=== PATIENT | female | born 1980 | race Caucasian/White ===

== ENCOUNTER 2025-01-09 08:36 | Inpatient (IN) | payer BC, SELFPAY ==
[2025-01-09 08:47] VITALS: BP 117/62; BMI 37.9
[2025-01-09 09:06] LABS: % Basophils 0.2 % (0-2); % Eosinophils 2.6 % (0-6); % Immature Granulocytes 0.6 % (0-0.5); % Lymphocytes 21.8 % (20.5-51.1); % Monocytes 6.9 % (1.7-9.3); % Neutrophils 67.9 % (42.2-75.2); Absolute Eosinophils 0.2 10^3/uL (0-0.7); Absolute Immature Granulocytes 0.1 10^3/uL (0-0.05); Absolute Lymphocytes 1.9 10^3/uL (1.2-3.4); Absolute Monocytes 0.6 10^3/uL (0.1-0.6); Hematocrit 31.2 % (37.0-47.0); Hemoglobin 10.5 g/dL (12.0-16.0); Mean Corp Hgb Conc. 33.7 g/dL (33.0-37.0); Mean Corpuscular Hgb 28.8 pg (27.0-31.0); Mean Corpuscular Volume 85.7 fL (81.0-99.0); Mean Platelet Volume 10.9 fL (7.4-10.4); Nucleated Red Blood Cells % 0 %; Platelet Count 205 10^3/uL (130-400); Red Blood Cell Count 3.64 10^6/uL (4.20-5.40); Red Cell Dist. Width 15.9 % (11.5-14.5); White Blood Cell Count 8.8 10^3/uL (4.8-10.8)
[2025-01-09] MEDS: TYLENOL 1000 MG PO (09:15)
[2025-01-09] MEDS: BICITRA 30 ML PO (09:15)
[2025-01-09] MEDS: CLEOCIN 50 IV (09:26)
[2025-01-09 09:33] LABS: ALT (SGPT) 21 U/L (0-35); AST (SGOT) 30 U/L (14-36); Alkaline Phosphatase 133 U/L (38-126); Blood Urea Nitrogen 7 mg/dl (7-17); Calcium 8.7 mg/dl (8.4-10.2); Carbon Dioxide 17 mmol/L (22-30); Chloride 109 mmol/L (98-107); Estimated Creatinine Clearance > 125 ml/min; Glucose 86 mg/dl (70-99); Potassium 3.9 mmol/L (3.5-5.1); Sodium 134 mmol/L (135-145); Total Bilirubin 0.6 mg/dl (0.2-1.3); Total Protein 5.8 g/dl (6.3-8.2); eGFR > 60.00
[2025-01-09] MEDS: GENTAMICIN 60 MG IV (10:20)
[2025-01-09] MEDS: PITOCIN 30 UNITS/NSS 500 ML IV (11:23)
--- NOTE | 2025-01-09 11:34 | CON.NEO ---
Consultation
-
Date/Time Consultation Requested: 01/09/2025 at 0900
Date/Time Consultation Performed: 01/09/2025 at 0900
Requesting Provider: Dr. Chun
Performing Provider: Dr. Curiel
Reason for Consultation: Late infant due to vaginal bleeding with placenta previa
Consultation - Neonatology
Maternal Labs
Blood Type: O Positive
Antibody Screen: Negative
RPR: Nonreactive
Rubella: Immune
Hep B S Ag: Negative
Hep C: Negative
HIV: Nonreactive
Group B Strep: Unknown
Chlamydia/GC: Negative
Consult
Points discussed at consult:
- Management at delivery and presence of NICU team that included the possibility of CPAP/intubation/surfactant discussed and possible need for NICU admission if any respiratory distress is noted.
- Nutrition: Risk of hypoglycemia due to LPI and IDM status. Mom plans to breastfeed, signed donor BM acknowledgement.
- Jaundice possibility and need for phototherapy discussed, will monitor either in the ICN or nursery.
- Skin to skin either in the OR if mom and baby stable or in the ICN if baby were to require admission.
Mom and Dad were given the opportunity to ask questions throughout and open invitation to call if any questions come as they absorb all the information given so far.
Face to Face Time
Total [facility] Time (in Minutes): 30
Manager Shift
[2025-01-09 12:12] LABS: Cord VBG HCO3 - POC 20 mmol/L; Cord VBG pCO2 - POC 43 mmHg; Cord VBG pH - POC 7.27; Cord VBG pO2 - POC < 18 mmHg
[2025-01-09] MEDS: TORADOL 15 MG IV ×2 (13:00→18:23)
[2025-01-09] MEDS: LR 1000 IV (13:01)
[2025-01-10] MEDS: TORADOL 15 MG IV ×2 (00:38→06:30)
--- NOTE | 2025-01-10 04:23 | DOWNTIME ---
There was a [email or web address] Client Head Packager Downtime on 01/10/2025 from 0100 to 01/11/2024 at 0420 . Downtime documentation of patient's care, including medication administrations, has been reconciled in the electronic record per guidelines. Refer to the
patient's paper chart under the miscellaneous tab to see printed paper medication records and downtime forms.
[2025-01-10 05:13] LABS: Hematocrit 26.2 % (37.0-47.0); Hemoglobin 8.8 g/dL (12.0-16.0); Mean Corp Hgb Conc. 33.6 g/dL (33.0-37.0); Mean Corpuscular Hgb 28.7 pg (27.0-31.0); Mean Corpuscular Volume 85.3 fL (81.0-99.0); Mean Platelet Volume 11.5 fL (7.4-10.4); Platelet Count 189 10^3/uL (130-400); Red Blood Cell Count 3.07 10^6/uL (4.20-5.40); Red Cell Dist. Width 15.9 % (11.5-14.5)
[2025-01-10] MEDS: SYNTHROID 50 MCG PO (06:30)
--- NOTE | 2025-01-10 07:40 | W.PN.ANS.POP ---
Anesthesia Post Operative
- Anesthesia Post Op Note
Vital Signs Stable-See Nursing Note: Yes
Airway Patent: Yes
Adequate Pain Control: Yes
Change in Mental Status: No
Current Postoperative Nausea & Vomiting: No
Anesthesia Complications: No
General Anesthetic Recall: No
Unplanned Admission: No
Post Op Hydration Adequate: Yes
[2025-01-10] MEDS: SENOKOT-S 1 TABLET PO (09:12)
[2025-01-10] MEDS: MYLICON 80 MG PO ×2 (09:13→20:16)
[2025-01-10] MEDS: FEOSOL 325 MG PO (09:13)
[2025-01-10] MEDS: PRENATAL PLUS 1 TABLET PO (09:13)
[2025-01-10] MEDS: MOTRIN 600 MG PO ×2 (13:37→19:18)
[2025-01-10] MEDS: TYLENOL 650 MG PO ×2 (15:16→19:18)
[2025-01-11] MEDS: TYLENOL 650 MG PO ×4 (01:10→20:51)
[2025-01-11] MEDS: MOTRIN 600 MG PO ×4 (01:10→20:52)
[2025-01-11] MEDS: MYLICON 80 MG PO (08:05)
[2025-01-11] MEDS: NON-FORMULARY ITEM 1 UNIT PO ×3 (08:06→08:07)
[2025-01-11] MEDS: SENOKOT-S 1 TABLET PO (14:35)
[2025-01-11] MEDS: TUMS CHEWABLE TABLET 400 MG PO (14:35)
[2025-01-12] MEDS: TYLENOL 650 MG PO ×2 (04:10→10:16)
[2025-01-12] MEDS: MOTRIN 600 MG PO ×2 (04:10→10:16)
[2025-01-12] MEDS: NON-FORMULARY ITEM 1 UNIT PO ×2 (08:05)
[2025-01-12] MEDS: SENOKOT-S 1 TABLET PO (10:16)
--- NOTE | 2025-01-12 10:51 | CM ---
Met with new parents Anisa and Umang at bedside
Completed initial assessment
Parents have named their Bart Duffy
Mom reports she plans to breast and bottle feed infant
Mom reports she has all supplies for infant including car seat and crib
Mom reporting dad and family supportive - feels safe at home
Peds for - [facility] in [place]
Discussed Anisa's PP depression scale of 10
Anisa reports she does not feel depressed at this time. She acknowledged that she was upset and feeling a little overwhelmed infant was receiving phototherapy and feeding issues. She acknowledged she has spoke with the baby's physician and felt
better about plan of care.
Anisa reports she has a hx of anxiety and that she does have a therapist she sees via telehealth q 2 weeks. She reports she also uses acupuncture occasionally as an alternative medicine.
Encouraged to contact her therapist and schedule appt
Given info for [facility] program - encouraged to call if she would like additional support
CM remains available to family for d/c needs
[2025-01-12 10:56] LABS: Syphilis/T. pallidum Ab Reflex Negative (Negative)
--- NOTE | 2025-01-12 14:25 | W.DS.TRANS ---
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
-
Discharge Instructions:
Discharge Diagnosis/Procedures placenta previa, delivered via
section
Diet No restrictions
Activity No strenuous activity
Driving Restrictions No driving for 2 weeks
Bathing Restrictions OK to Shower
Instructions:
Stand-Alone Forms: LDRP Delivery
Changes to Home Medications: No
Discharge Medications:
DC Medications w/original date entered in [employer]
ferrous sulfate 325 mg (65 mg iron) tablet (iron) 325 mg PO DAILY Supplement 01/09/25
levothyroxine 50 mcg capsule (Tirosint) 50 mcg PO DAILY Thyroid 01/09/25
[id number] 1 mg tablet 1 tab PO DAILY Supplement 01/09/25
acetaminophen 325 mg tablet 650 mg (2 x 325 mg) PO Q4HPRN PRN mild pain #1 tab 01/12/25
ibuprofen 600 mg tablet 600 mg PO Q6HPRN PRN cramps #60 tabs 01/12/25
Home Medication Changes
Pending Results: No
--- NOTE | 2025-01-12 14:25 | W.DCSUMMARY ---
Discharge Summary
Discharge Data
Date of Admission: 01/09/25
Date of Discharge: 01/12/25
-
Pending Results: No
Hospital Course
Patient is a 44yo who presented to Labor and Delivery on 01/09 with complaints of vaginal bleeding. She has a known placenta previa. She was getting care in [place] and had plans for delivery next week, but was told to present to the
nearest hospital. On arrival, patient with some blood in the vaginal vault. Discussion was had with [facility] and decision made to proceed with delivery in the setting of placenta previa with vaginal bleeding. She underwent primary low transverse
section. The procedure was uncomplicated. The estimated blood loss was 625mL. On postoperative day one, she was doing well. Her hemoglobin was 8.8. She was already taking an iron supplement. On postoperative day two, she had no complaints. On
postoperative day three, she was meeting all and postoperative milestones. She was voiding spontaneously, having bowel movements, tolerating a regular diet and ambulating without difficulty. Discharge instructions and return precautions
were discussed prior to discharge. She was instructed to follow up in 2 weeks for an incision check.
Discharge Plan
-
Patient Disposition: Home (Routine Discharge)
Discharge Diagnosis/Procedures: placenta previa, delivered via section
Condition: Good
Diet: No restrictions
Activity: No strenuous activity
Driving Restrictions: No driving for 2 weeks
Bathing Restrictions: OK to Shower
Stand Alone Forms: LDRP Delivery
Referrals:
Mark Chun MD [Active] - in two weeks
Ayleen Krishnamurthy MD [Family Provider] -
Prescriptions:
New
acetaminophen 325 mg Tablet
650 mg PO Q4HPRN PRN (Reason: mild pain) Qty: 1 0RF
ibuprofen 600 mg Tablet
600 mg PO Q6HPRN PRN (Reason: cramps) Qty: 60 0RF
Continued
levothyroxine [Tirosint] 50 mcg Capsule
50 mcg PO DAILY
zulxsnxf-rhi-Si-FA 1 mg Tablet
1 tab PO DAILY
ferrous sulfate [iron] 325 mg (65 mg iron) Tablet
325 mg PO DAILY
Discontinued
aspirin [Baby Aspirin] 81 mg Tablet,Chewable
81 mg PO DAILY
Discharge Orders:
Discharge Patient (As Directed); Ordered 01/12/25
Ordered By: Mercedez Avina
Discharge Date and Time
Print Language: SYRIAC
== END 2025-01-12 17:46 | disposition home or self-care (01) | DRG 786 ==
LOC: LDRP 08:36
PROVIDERS: ADMITTING PHYSICIAN Obstetrics & Gynecology; FAMILY PHYSICIAN Family Medicine
PROC: 10D00Z1 Extraction of Products of Conception, Low, Open Approach (ICD-10-PCS; 2025-01-09)
DX: O44.13 Complete placenta previa with hemorrhage, third trimester (principal); O60.14X0 Preterm labor third trimester with preterm delivery third trimester, not applicable or unspecified; O99.43 Diseases of the circulatory system complicating the puerperium; I95.9 Hypotension, unspecified; Z3A.36 36 weeks gestation of pregnancy; Z37.0 Single live birth; O24.420 Gestational diabetes mellitus in childbirth, diet controlled; O99.284 Endocrine, nutritional and metabolic diseases complicating childbirth; E03.9 Hypothyroidism, unspecified; O99.214 Obesity complicating childbirth; E66.813 Obesity, class 3; O75.89 Other specified complications of labor and delivery; O99.344 Other mental disorders complicating childbirth; F32.A Depression, unspecified; F41.9 Anxiety disorder, unspecified; Z87.59 Personal history of other complications of pregnancy, childbirth and the puerperium
CPT/HCPCS: 88307; 80053; 85025; 85027; 86780; 86850; 86900; 86901; 86920